=== PATIENT | male | born 1985 | race Caucasian/White ===

== ENCOUNTER → 2017-01-10 | Outpatient (CLI) | payer OTHER | LOC: BMCIMAGING 07:12 | PROVIDERS: ATTEND Internal Medicine | DX: E04.1 Nontoxic single thyroid nodule (principal) | CPT/HCPCS: 76536-PO ==

== ENCOUNTER → 2017-06-02 | Outpatient (CLI) | payer OTHER | LOC: BMCIMAGING 09:31 | PROVIDERS: ATTEND Family Medicine | DX: S42.021A Displaced fracture of shaft of right clavicle, initial encounter for closed fracture (principal) ==

== ENCOUNTER → 2017-06-12 | Outpatient (CLI) | payer OTHER | LOC: BMCIMAGING 09:06 | PROVIDERS: ATTEND Physician Assistant | DX: S42.001A Fracture of unspecified part of right clavicle, initial encounter for closed fracture (principal) ==

== ENCOUNTER → 2017-07-10 | Outpatient (CLI) | payer OTHER | LOC: BMCIMAGING 08:35 | PROVIDERS: ATTEND Physician Assistant | DX: S42.001D Fracture of unspecified part of right clavicle, subsequent encounter for fracture with routine healing (principal) ==

== ENCOUNTER → 2017-08-06 | Outpatient (CLI) | payer OTHER | LOC: BMCIMAGING 08:21 | PROVIDERS: ATTEND Physician Assistant | DX: S42.024D Nondisplaced fracture of shaft of right clavicle, subsequent encounter for fracture with routine healing (principal) ==

== ENCOUNTER → 2018-03-04 | Outpatient (CLI) | payer OTHER | LOC: BMCIMAGING 13:18 | PROVIDERS: ATTEND Internal Medicine | DX: E04.1 Nontoxic single thyroid nodule (principal) | CPT/HCPCS: 76536-PO ==